=== PATIENT | female | born 1975 | race American Indian/Alaskan Native ===

== ENCOUNTER 2022-02-05 09:06 | Emergency (ER) | payer SELFPAY ==
[2022-02-05 09:09] VITALS: BP 144/86
--- NOTE | 2022-02-05 09:21 | Emergency Department Report ---
ED General Adult HPI - General Chief complaint: Altered Mental Status Stated complaint: PSYCH PUI?: No Time Seen by Provider: 02/05/22 09:11 Source: patient, EMS Mode of arrival: Ambulatory Limitations: No Limitations - History of Present Illness Initial comments: Chief complaint: "I do not need any services. I was told that I had to come." HPI: This is a 46-year-old female with history of bipolar disorder who was found sleeping in a restaurant of the local [employer]. EMS was contacted. She denies pain or discomfort. She is homeless. She is a "street camper". She denies suicidal homicidal ideation. She denies auditory hallucinations. -: This morning Severity scale (0 -10): 0 Consistency: other (No current issues) Improves with: none Worsens with: none Associated Symptoms: denies other symptoms Treatments Prior to Arrival: other (EMS transport) - Related Data Home Medications Medication Instructions Recorded Confirmed Last Taken Unobtainable 05/16/20 05/16/20 Unknown Allergies Allergy/AdvReac Type Severity Reaction Status Date / Time No Known Allergies Allergy Verified 02/05/22 09:09 ED Review of Systems ROS: Stated complaint: PSYCH Other details as noted in HPI Comment: All other systems reviewed and negative Constitutional: denies: chills, fever, malaise Respiratory: denies: cough, shortness of breath Cardiovascular: denies: chest pain Gastrointestinal: denies: abdominal pain, nausea Psychiatric: denies: anxiety, depression, auditory hallucinations, visual hallucinations, homicidal thoughts, suicidal thoughts ED Past Medical Hx - Past Medical History Previous Medical History?: Yes Hx Psychiatric Treatment: Yes (Bipolar disorder) - Surgical History Additional Surgical History: surgery for wart removal - Family History Family history: other (Noncontributory to this presentation.) - Social History Smoking Status: Current Every Day Smoker Substance Use Type: Alcohol - Medications Home Medications: Home Medications Medication Instructions Recorded Confirmed Last Taken Type Unobtainable 05/16/20 05/16/20 Unknown History ED Physical Exam - General Limitations: No Limitations, Altered Mental Status General appearance: alert, in no apparent distress, other (GCS 15, intelligent insightful normal mental status) - Head Head exam: Present: atraumatic, normocephalic - Eye Eye exam: Present: normal appearance - ENT ENT exam: Present: mucous membranes moist - Neck Neck exam: Present: normal inspection, full ROM - Respiratory Respiratory exam: Present: normal lung sounds bilaterally. Absent: respiratory distress, wheezes, rales, rhonchi - Cardiovascular Cardiovascular Exam: Present: regular rate, normal rhythm, normal heart sounds. Absent: systolic murmur, diastolic murmur, rubs, gallop - GI/Abdominal GI/Abdominal exam: Present: soft, normal bowel sounds. Absent: distended, tenderness, guarding, rebound - Extremities Exam Extremities exam: Present: normal inspection - Neurological Exam Neurological exam: Present: alert, oriented X3, normal gait - Psychiatric Psychiatric exam: Present: normal affect, normal mood - Skin Skin exam: Present: warm, dry, intact, normal color. Absent: rash ED Course Vital Signs 02/05/22 09:07 Temperature 98 F Pulse Rate 95 H Respiratory 18 Rate Blood Pressure 144/86 [Left] O2 Sat by Pulse 99 Oximetry ED Medical Decision Making - Medical Decision Making Normal mental and physical exam. Patient was [place] the [place]. No evidence of psychosis. She is quite articulate and insightful. She is discharged to self-care. She is admittedly homeless. Critical care attestation.: If time is entered above; I have spent that time in minutes in the direct care of this critically ill patient, excluding procedure time. ED Disposition Clinical Impression: Encounter for medical screening examination Disposition: HOME / SELF CARE / HOMELESS Is pt being admited?: No Does the pt Need Aspirin: No Condition: Stable
== END 2022-02-05 09:24 | disposition home or self-care (01) ==
LOC: ED 09:06
DX: Z00.00 Encounter for general adult medical examination without abnormal findings (principal); F31.9 Bipolar disorder, unspecified; F17.200 Nicotine dependence, unspecified, uncomplicated; Z72.89 Other problems related to lifestyle
CPT/HCPCS: 99283